=== PATIENT | male | born 1940 | race Caucasian/White ===

== ENCOUNTER 2018-05-28 08:42 | Outpatient (CLI) | payer MEDICARE | END 2018-05-28 08:43 | disposition home or self-care (01) | LOC: C.PAT 08:42 | DX: Z86.010 Personal history of colon polyps (principal) ==

== ENCOUNTER 2018-06-05 06:48 | Day surgery (SDC) | payer MEDICARE ==
[2018-05-28 09:09] VITALS: BMI 26.4
--- NOTE | 2018-06-05 08:42 | CP.SDSHP ---
Same Day Surgery H & P - History Proposed Procedure: colonoscopy Pre-Op Diagnosis: history of colon polyps - Previous Medical/Surgical History Cardiac: Hypertension Endocrine/Metabolic: Diabetes - Allergies Allergies: Allergies No Known Allergies Allergy (Verified 06/05/18 07:23) - Physical Exam General Appearance: NAD Vital Signs: Vital Signs 06/05/18 07:45 Temperature 98.6 F Pulse Rate 80 Respiratory 20 Rate Blood Pressure 128/71 O2 Sat by Pulse 97 Oximetry Mental Status: Alert & Oriented x3 Neuro: WNL Heart: WNL Lungs: WNL GI: WNL - {Optional Preform as Required} Abdomen: WNL - Impression Pt. Evaluated Today:Candidate for Anesthesia & Procedure: Yes - Date & Time Date: 06/05/18 Time: 08:42 Short Stay Discharge - Short Stay Discharge Admitting Diagnosis/Reason for Visit: HISTORY OF POLYPS Disposition: HOME/ ROUTINE Referrals: Nanci Kyle MD [Primary Care Provider] -
[2018-06-05] MEDS ORDERED: Lactated Ringer's 1,000 ML IV ONE (08:43)
[2018-06-05] MEDS ORDERED: Propofol 10 mg/ml Inj (20 ML) ONE ×2 (08:46→09:14)
[2018-06-05 10:55] VITALS: BP 127/68; PULSE 77; RESP 19; TEMP 98.3; O2SAT 98
== END 2018-06-05 10:50 | disposition home or self-care (01) ==
LOC: C.ENDO 06:48
PROVIDERS: ATTEND Internal Medicine Gastroenterology
DX: D12.2 Benign neoplasm of ascending colon (principal); D12.3 Benign neoplasm of transverse colon; Z86.010 Personal history of colon polyps; E11.9 Type 2 diabetes mellitus without complications; I10 Essential (primary) hypertension; K64.1 Second degree hemorrhoids; K57.30 Diverticulosis of large intestine without perforation or abscess without bleeding
CPT/HCPCS: 45380; 82948; 88305; J2704; J7120